=== PATIENT | male | born 1945 | race Caucasian/White ===

== ENCOUNTER → 2019-06-16 | Outpatient (CLI) | payer MEDICARE ==
--- NOTE | 2019-06-16 17:28 | Diagnostic Imaging Report ---
INDICATION: Bilateral knee pain. TIME OF EXAM: 1:18 p.m. Multiple views of the bilateral knees were obtained. FINDINGS: Right knee shows significant patellofemoral and medial compartmental degenerative change with joint space narrowing and marginal spurring. Lesser joint space narrowing of the left knee is seen. There does appear to be mild medial compartmental narrowing as well as patellofemoral narrowing. There is also chondrocalcinosis of the lateral compartment of the left knee. No fractures are identified. There is no joint effusion. IMPRESSION: Bilateral degenerative changes. No acute bony abnormality is detected. Dictated by: Dictated on workstation # [id number]
== END ==
LOC: RAD FS 13:28
PROVIDERS: ATTEND Nurse Practitioner
DX: M17.0 Bilateral primary osteoarthritis of knee (principal)

== ENCOUNTER → 2020-04-13 | Outpatient (CLI) | payer MEDICARE ==
--- NOTE | 2020-04-13 13:11 | Diagnostic Imaging Report ---
INDICATION: Knee contusion. COMPARISON: 06/16/2019. TECHNIQUE: Three radiographs of the left knee dated 04/13/2020. FINDINGS: No acute fracture or dislocation. No destructive osseous process. Mild medial joint space narrowing. The lateral compartment is well maintained. Mild tricompartmental osteophytosis. Chondrocalcinosis of the medial and lateral menisci is again noted. Superior and inferior patellar enthesophytes. Prepatellar soft tissue swelling is present, new from the prior exam. IMPRESSION: New prepatellar soft tissue swelling which may relate to hematoma, soft tissue injury, or bursitis. Chondrocalcinosis of the menisci which can be seen with CPPD deposition disease although can also simply be seen with osteoarthritis. Degenerative changes without acute fracture. Dictated by: Dictated on workstation # [id number]
== END ==
LOC: RAD FS 11:02
PROVIDERS: ATTEND Nurse Practitioner
DX: S80.02XD Contusion of left knee, subsequent encounter (principal); M11.262 Other chondrocalcinosis, left knee; X58.XXXD Exposure to other specified factors, subsequent encounter
CPT/HCPCS: 73562